=== PATIENT | female | born 1975 | race Caucasian/White ===

== ENCOUNTER 2022-10-19 20:49 | Inpatient (IN) ==
[2022-10-19 21:47] LABS: Basophils % 0.1 % (0.0-0.8); Hematocrit 37.3 VOL% (35.7-47.0); Hemoglobin 12.2 GM/DL (12.0-16.0); Immature Granulocytes % 0.5 %; Immature Granulocytes Absolute 0.08 #; Lymphocytes # 0.4 10*3/uL (1.4-4.0); Lymphocytes % 2.5 % (21.3-54.2); Mean Corpuscular HGB Conc 32.7 GM/DL (32-36); Mean Corpuscular Volume 96.1 FL (87-102); Monocytes # 1.2 10*3/uL (0.11-0.8); Monocytes % 7.5 % (1.7-12.7); Neutrophils % 89.4 % (38.7-73.9); Platelet Count 193 T/CUMM (130-400); Red Blood Count 3.88 MC/CUMM (3.8-5.5); Red Cell Distribution Width 12.4 % (9.3-17.3); White Blood Count 15.3 T/CUMM (4-12)
[2022-10-19] MEDS ORDERED: ONDANSETRON 4 MG/2 ML VIAL IV STA (22:00)
[2022-10-19] MEDS ORDERED: KETOROLAC 30 MG/1 ML VIAL IV STA (22:00)
[2022-10-19] MEDS ORDERED: SODIUM CHLORIDE 0.9% 1,000 ML IV STA ×2 (22:00→23:44)
[2022-10-19 22:14] LABS: Band Neutrophils 20 % (0-10); Lymphocytes 1 % (20-55); Total Cells Counted 100
[2022-10-19 22:15] LABS: Platelet Estimate Adequate
[2022-10-19] MEDS ORDERED: HYDROmorphone 1 MG/1 ML SYRINGE IV STA (22:18)
[2022-10-19 22:24] LABS: Albumin 3.6 G/DL (3.4-5.0); Bilirubin,Total 1.2 MG/DL (0.20-1.00); Osmolality,Calculated 284.1 MOS/KG (273-304); Potassium 3.7 MMOL/L (3.5-5.1); Total Protein 7.1 G/DL (6.4-8.2)
[2022-10-19 22:35] LABS: Bacteria,Urine Occasional /HPF (Few); Mucus,Urine Occasional /LPF (Occasional); RBC,Urine <1 /HPF (0-4); Squamous Epithelial Cell,Urine Occasional /HPF (0-10)
[2022-10-19 22:36] LABS: Bilirubin,Urine Negative (Negative); Blood, Urine Negative (Negative); Glucose,Urine (UA) Negative (Negative); Ketones,Urine 15 mg/dL (Negative); Nitrite,Urine Positive (Negative); Protein,Urine 30 mg/dL (Negative); Urine Appearance Clear (Clear); Urine Color Yellow (Yellow); Urine Specific Gravity 1.015 (1.001-1.035); Urine Urobilinogen 0.2 eU/dL (<2.0); Urine pH 6.5 (4.5-8.0)
[2022-10-19] MEDS ORDERED: CIPROFLOXACIN INJ 400 MG/200 ML PREMIX IV STA (22:50)
[2022-10-20] MEDS ORDERED: SODIUM CHLORIDE 0.9% 1,000 ML IV STA (00:51)
[2022-10-20] MEDS ORDERED: ACETAMINOPHEN 500 MG TABLET PO STA (01:24)
[2022-10-20] MEDS ORDERED: HYDROmorphone 1 MG/1 ML SYRINGE IV STA (01:24)
[2022-10-20] MEDS ORDERED: PIPERACILLIN/TAZOBACTAM 3,375 MG in SODIUM CHLORIDE 0.9% 100 ML IV STA (01:29)
[2022-10-20] MEDS ORDERED: NOREPINEPHRINE 8 MG in SODIUM CHLORIDE 0.9% 242 ML IV PRN (02:37)
[2022-10-20] MEDS ORDERED: HYDROmorphone 1 MG/1 ML SYRINGE IV PRN (02:37)
[2022-10-20] MEDS ORDERED: PROMETHAZINE 25 MG/1 ML VIAL IM PRN (02:37)
[2022-10-20] MEDS ORDERED: ACETAMINOPHEN 325 MG TABLET PO PRN (02:37)
[2022-10-20] MEDS ORDERED: ONDANSETRON 4 MG/2 ML VIAL IV PRN (02:37)
[2022-10-20] MEDS ORDERED: SODIUM CHLORIDE 0.9% 1,000 ML IV SCH (03:00)
[2022-10-20] MEDS: FAMOTIDINE 20 MG/2 ML VIAL IV SCH ×2 (03:14→15:02)
[2022-10-20] MEDS: LACTATED RINGERS 1,000 ML IV SCH ×4 (03:26→17:57)
[2022-10-20 05:47] LABS: Basophils % 0.2 % (0.0-0.8); Hematocrit 31.4 VOL% (35.7-47.0); Hemoglobin 10.1 GM/DL (12.0-16.0); Immature Granulocytes % 2.9 %; Immature Granulocytes Absolute 0.69 #; Lymphocytes # 0.7 10*3/uL (1.4-4.0); Mean Corpuscular HGB Conc 32.2 GM/DL (32-36); Mean Corpuscular Volume 97.2 FL (87-102); Monocytes # 1.1 10*3/uL (0.11-0.8); Monocytes % 4.4 % (1.7-12.7); Neutrophils % 89.5 % (38.7-73.9); Platelet Count 191 T/CUMM (130-400); Red Blood Count 3.23 MC/CUMM (3.8-5.5); Red Cell Distribution Width 12.7 % (9.3-17.3)
[2022-10-20 06:08] LABS: Calcium 7.4 MG/DL (8.5-10.1); Osmolality,Calculated 285.1 MOS/KG (273-304); Potassium 3.9 MMOL/L (3.5-5.1)
[2022-10-20 06:16] LABS: Band Neutrophils 4 % (0-10); Lymphocytes 5 % (20-55); Total Cells Counted 100
[2022-10-20 06:17] LABS: Platelet Estimate Adequate
[2022-10-20] MEDS ORDERED: SODIUM BICARBONATE 50 MEQ/50 ML VIAL IV ONE (08:33)
[2022-10-20] MEDS: PIPERACILLIN/TAZOBACTAM 3,375 MG in SODIUM CHLORIDE 0.9% 100 ML IV SCH ×2 (09:31→18:22)
[2022-10-20] MEDS: KETOROLAC 30 MG/1 ML VIAL IV PRN (09:59)
[2022-10-20] MEDS: LEVOFLOXACIN INJ 750 MG/150 ML PREMIX IV SCH (15:02)
[2022-10-20] MEDS: HYDROCORTISONE 100 MG VIAL IV SCH ×2 (15:03→22:15)
[2022-10-20 15:21] LABS: Calcium 7.2 MG/DL (8.5-10.1); Osmolality,Calculated 287.8 MOS/KG (273-304)
[2022-10-20] MEDS ORDERED: MAGNESIUM SULF RIDER 2 GM/50 ML PREMIX IV ONE ×2 (17:00→19:02)
[2022-10-20] MEDS ORDERED: LACTATED RINGERS 1,000 ML IV SCH (17:06)
[2022-10-20] MEDS ORDERED: CALCIUM GLUCONATE RIDER 1,000 MG/50 ML PREMIX IV ONE (17:06)
[2022-10-20] MEDS ORDERED: MAGNESIUM SULF RIDER 4 GM/100 ML PREMIX IV ONE ×2 (17:07→17:12)
[2022-10-20] MEDS: VANCOMYCIN INJ 1,000 MG in SODIUM CHLORIDE 0.9% 250 ML IV SCH (18:22)
[2022-10-20] MEDS ORDERED: ZOLMITRIPTAN 5 MG PO PRN (18:59)
[2022-10-20] MEDS ORDERED: MORPHINE 2 MG/1 ML SYRINGE IV ONE (23:04)
[2022-10-20] MEDS ORDERED: METHOCARBAMOL 1,000 MG/10 ML VIAL IM ONE (23:19)
[2022-10-20] MEDS ORDERED: ALBUTEROL/IPRATROPIUM 3 ML NEB RESP TX PRN (23:24)
[2022-10-20] MEDS ORDERED: METHOCARBAMOL INJ 500 MG in SODIUM CHLORIDE 0.9% 100 ML IV ONE (23:24)
[2022-10-20] MEDS ORDERED: SODIUM CHLORIDE 0.9% IV ONE (23:36)
[2022-10-20] MEDS ORDERED: METHOCARBAMOL IV ONE (23:36)
[2022-10-20] MEDS: ALBUTEROL 2.5 MG/3 ML NEB RESP TX PRN (23:37)
[2022-10-21] MEDS ORDERED: FUROSEMIDE 20 MG/2 ML VIAL IV ONE (01:10)
[2022-10-21] MEDS: PIPERACILLIN/TAZOBACTAM 3,375 MG in SODIUM CHLORIDE 0.9% 100 ML IV SCH ×3 (01:25→18:17)
[2022-10-21] MEDS: FAMOTIDINE 20 MG/2 ML VIAL IV SCH ×2 (03:15→14:10)
[2022-10-21] MEDS: VANCOMYCIN INJ 1,000 MG in SODIUM CHLORIDE 0.9% 250 ML IV SCH ×2 (04:35→17:05)
[2022-10-21 04:37] LABS: Arterial Base Excess iSTAT -4 MMOL/L (-2.5-2.5); Arterial Bicarbonate iSTAT 20.8 MMOL/L (20-26); Arterial O2 Saturation iSTAT 99 % (95-100); Arterial PCO2 iSTAT 37 MM HG (35-48); Arterial PO2 iSTAT 145 MM HG (80-95); Arterial Total CO2 iSTAT 22 MMO/L (23-27); Arterial pH iSTAT 7.357 (7.35-7.45)
[2022-10-21 04:56] LABS: Basophils # 0.1 10*3/uL (0.0-0.2); Basophils % 0.3 % (0.0-0.8); Eosinophils % 0.2 % (0.00-10.9); Hematocrit 31.6 VOL% (35.7-47.0); Hemoglobin 10.3 GM/DL (12.0-16.0); Immature Granulocytes % 8.2 %; Immature Granulocytes Absolute 1.68 #; Lymphocytes # 0.8 10*3/uL (1.4-4.0); Mean Corpuscular HGB Conc 32.6 GM/DL (32-36); Mean Corpuscular Volume 95.5 FL (87-102); Mean Platelet Volume 10.9 FL (9.6-12.0); Monocytes % 4.8 % (1.7-12.7); Neutrophils % 82.5 % (38.7-73.9); Platelet Count 150 T/CUMM (130-400); Red Blood Count 3.31 MC/CUMM (3.8-5.5); Red Cell Distribution Width 12.7 % (9.3-17.3); White Blood Count 20.4 T/CUMM (4-12)
[2022-10-21 05:20] LABS: Albumin 2.6 G/DL (3.4-5.0); Bilirubin,Total 1.1 MG/DL (0.20-1.00); Calcium 8.2 MG/DL (8.5-10.1); Osmolality,Calculated 279.3 MOS/KG (273-304); Potassium 3.7 MMOL/L (3.5-5.1); Total Protein 5.3 G/DL (6.4-8.2)
[2022-10-21 06:06] LABS: Anisocytosis 1+; Band Neutrophils 31 % (0-10); Burr Cells Few; Lymphocytes 5 % (20-55); Macrocytosis Slight; Platelet Estimate Normal; Total Cells Counted 100
[2022-10-21] MEDS: HYDROCORTISONE 100 MG VIAL IV SCH ×2 (06:14→18:17)
[2022-10-21] MEDS: KETOROLAC 30 MG/1 ML VIAL IV PRN (07:57)
[2022-10-21] MEDS: METHOCARBAMOL 500 MG TABLET PO PRN ×2 (12:21→17:01)
[2022-10-21] MEDS: ALBUTEROL 2.5 MG/3 ML NEB RESP TX SCH ×2 (13:10→19:42)
[2022-10-21] MEDS: LEVOFLOXACIN INJ 750 MG/150 ML PREMIX IV SCH (14:10)
[2022-10-21] MEDS: ZALEPLON 5 MG CAPSULE PO PRN (20:27)
[2022-10-22] MEDS: METHOCARBAMOL 500 MG TABLET PO PRN ×2 (00:18→23:13)
[2022-10-22] MEDS: ALBUTEROL 2.5 MG/3 ML NEB RESP TX SCH ×4 (00:30→19:47)
[2022-10-22] MEDS: PIPERACILLIN/TAZOBACTAM 3,375 MG in SODIUM CHLORIDE 0.9% 100 ML IV SCH ×3 (03:33→18:56)
[2022-10-22] MEDS: FAMOTIDINE 20 MG/2 ML VIAL IV SCH ×2 (03:33→14:43)
[2022-10-22 04:01] LABS: Basophils % 0.1 % (0.0-0.8); Hematocrit 25.8 VOL% (35.7-47.0); Hemoglobin 8.5 GM/DL (12.0-16.0); Immature Granulocytes % 0.8 %; Immature Granulocytes Absolute 0.15 #; Lymphocytes # 0.9 10*3/uL (1.4-4.0); Lymphocytes % 4.5 % (21.3-54.2); Mean Corpuscular HGB Conc 32.9 GM/DL (32-36); Mean Corpuscular Volume 94.5 FL (87-102); Mean Platelet Volume 11.4 FL (9.6-12.0); Neutrophils % 89.6 % (38.7-73.9); Platelet Count 136 T/CUMM (130-400); Red Blood Count 2.73 MC/CUMM (3.8-5.5); Red Cell Distribution Width 12.8 % (9.3-17.3); White Blood Count 19.5 T/CUMM (4-12)
[2022-10-22 04:28] LABS: Albumin 2.1 G/DL (3.4-5.0); Bilirubin,Total 0.5 MG/DL (0.20-1.00); Calcium 8.2 MG/DL (8.5-10.1); Osmolality,Calculated 287.8 MOS/KG (273-304); Potassium 3.3 MMOL/L (3.5-5.1); Total Protein 5.2 G/DL (6.4-8.2)
[2022-10-22 04:39] LABS: Band Neutrophils 4 % (0-10); Lymphocytes 6 % (20-55); Total Cells Counted 100
[2022-10-22 04:40] LABS: Macrocytosis Slight
[2022-10-22] MEDS: HYDROCORTISONE 100 MG VIAL IV SCH ×2 (05:47→20:15)
[2022-10-22] MEDS: VANCOMYCIN INJ 1,000 MG in SODIUM CHLORIDE 0.9% 250 ML IV SCH ×2 (05:48→16:46)
[2022-10-22] MEDS ORDERED: POTASSIUM CHLORIDE 20 MEQ TABLET PO ONE (05:51)
[2022-10-22] MEDS: ALPRAZolam 0.5 MG TABLET PO PRN ×2 (08:53→19:00)
[2022-10-22] MEDS ORDERED: FUROSEMIDE 20 MG/2 ML VIAL IV ONE (08:58)
[2022-10-22] MEDS: LEVOFLOXACIN INJ 750 MG/150 ML PREMIX IV SCH (14:43)
[2022-10-22] MEDS: POTASSIUM CHLORIDE 20 MEQ TABLET PO PRN ×4 (16:46→23:12)
[2022-10-22] MEDS: ALBUTEROL 2.5 MG/3 ML NEB RESP TX PRN (22:35)
[2022-10-22] MEDS: ZALEPLON 5 MG CAPSULE PO PRN (23:05)
[2022-10-22] MEDS: guaiFENesin 200 MG/10 ML UDCUP PO PRN (23:05)
[2022-10-23] MEDS: ALBUTEROL 2.5 MG/3 ML NEB RESP TX SCH ×4 (00:10→19:42)
[2022-10-23] MEDS: FAMOTIDINE 20 MG/2 ML VIAL IV SCH ×2 (02:16→15:05)
[2022-10-23] MEDS: PIPERACILLIN/TAZOBACTAM 3,375 MG in SODIUM CHLORIDE 0.9% 100 ML IV SCH ×3 (02:19→18:40)
[2022-10-23] MEDS: VANCOMYCIN INJ 1,250 MG in SODIUM CHLORIDE 0.9% 250 ML IV SCH ×2 (03:13→17:28)
[2022-10-23] MEDS: ALPRAZolam 0.5 MG TABLET PO PRN (03:25)
[2022-10-23 04:44] LABS: Basophils % 0.1 % (0.0-0.8); Hematocrit 26.5 VOL% (35.7-47.0); Hemoglobin 8.8 GM/DL (12.0-16.0); Immature Granulocytes % 0.4 %; Immature Granulocytes Absolute 0.06 #; Lymphocytes # 0.9 10*3/uL (1.4-4.0); Lymphocytes % 6.3 % (21.3-54.2); Mean Corpuscular HGB Conc 33.2 GM/DL (32-36); Mean Platelet Volume 11.9 FL (9.6-12.0); Monocytes # 0.8 10*3/uL (0.11-0.8); Monocytes % 5.5 % (1.7-12.7); Neutrophils % 87.7 % (38.7-73.9); Platelet Count 143 T/CUMM (130-400); Red Blood Count 2.79 MC/CUMM (3.8-5.5); Red Cell Distribution Width 12.7 % (9.3-17.3); White Blood Count 14.8 T/CUMM (4-12)
[2022-10-23 05:24] LABS: Calcium 8.2 MG/DL (8.5-10.1); Osmolality,Calculated 287.8 MOS/KG (273-304); Potassium 3.8 MMOL/L (3.5-5.1)
[2022-10-23 07:32] LABS: Band Neutrophils 1 % (0-10); Lymphocytes 11 % (20-55); Microcytosis Slight; Total Cells Counted 100
[2022-10-23 07:33] LABS: Ovalocytes Slight; Platelet Estimate Adequate
[2022-10-23] MEDS: POTASSIUM CHLORIDE 20 MEQ TABLET PO PRN ×6 (07:51→22:08)
[2022-10-23] MEDS: HYDROCORTISONE 100 MG VIAL IV SCH ×2 (08:18→15:06)
[2022-10-23] MEDS ORDERED: MIDAZOLAM 2 MG/2 ML VIAL ONE (09:55)
[2022-10-23] MEDS ORDERED: propofoL 200 MG/20 ML VIAL IV ONE (09:55)
[2022-10-23] MEDS ORDERED: fentaNYL 100 MCG/2 ML VIAL ONE (09:55)
[2022-10-23] MEDS ORDERED: CLORAZEPATE 7.5 MG TABLET PO PRN (10:59)
[2022-10-23] MEDS ORDERED: FUROSEMIDE 40 MG/4 ML VIAL IV ONE (11:18)
[2022-10-23] MEDS: BENZONATATE 100 MG CAPSULE PO SCH ×3 (11:37→20:05)
[2022-10-23] MEDS: ENOXAPARIN 40 MG/0.4 ML SYRINGE SUBCUT SCH (11:38)
[2022-10-23] MEDS: BUDESONIDE 0.5 MG/2 ML NEB RESP TX SCH ×2 (11:45→19:42)
[2022-10-23] MEDS: DIAZEPAM 5 MG TABLET PO PRN (11:45)
[2022-10-23] MEDS: LEVOFLOXACIN INJ 750 MG/150 ML PREMIX IV SCH (15:06)
[2022-10-23] MEDS ORDERED: methylPREDNISolone SOD SUC 125 MG/2 ML VIAL IV ONE (19:00)
[2022-10-23] MEDS: methylPREDNISolone SOD SUC 40 MG/1 ML VIAL IV SCH (19:37)
[2022-10-23] MEDS: METHOCARBAMOL 500 MG TABLET PO PRN (22:38)
[2022-10-23] MEDS: guaiFENesin 200 MG/10 ML UDCUP PO PRN (22:45)
[2022-10-24] MEDS: ALBUTEROL 2.5 MG/3 ML NEB RESP TX SCH ×4 (02:00→19:19)
[2022-10-24] MEDS: FAMOTIDINE 20 MG/2 ML VIAL IV SCH ×2 (02:41→15:05)
[2022-10-24] MEDS: methylPREDNISolone SOD SUC 40 MG/1 ML VIAL IV SCH ×3 (02:44→19:30)
[2022-10-24] MEDS: PIPERACILLIN/TAZOBACTAM 3,375 MG in SODIUM CHLORIDE 0.9% 100 ML IV SCH ×3 (02:45→18:20)
[2022-10-24] MEDS: DIAZEPAM 5 MG TABLET PO PRN (02:48)
[2022-10-24] MEDS: guaiFENesin 200 MG/10 ML UDCUP PO PRN ×2 (02:48→18:23)
[2022-10-24 04:40] LABS: Basophils % 0.1 % (0.0-0.8); Hematocrit 27.9 VOL% (35.7-47.0); Hemoglobin 9.5 GM/DL (12.0-16.0); Immature Granulocytes % 1.4 %; Immature Granulocytes Absolute 0.12 #; Lymphocytes # 0.8 10*3/uL (1.4-4.0); Lymphocytes % 9.5 % (21.3-54.2); Mean Corpuscular HGB Conc 34.1 GM/DL (32-36); Mean Corpuscular Volume 92.4 FL (87-102); Mean Platelet Volume 11.2 FL (9.6-12.0); Monocytes # 0.1 10*3/uL (0.11-0.8); Monocytes % 1.4 % (1.7-12.7); Neutrophils % 87.6 % (38.7-73.9); Platelet Count 167 T/CUMM (130-400); Red Blood Count 3.02 MC/CUMM (3.8-5.5); Red Cell Distribution Width 12.5 % (9.3-17.3); White Blood Count 8.6 T/CUMM (4-12)
[2022-10-24 05:07] LABS: Calcium 8.3 MG/DL (8.5-10.1); Potassium 3.8 MMOL/L (3.5-5.1)
[2022-10-24] MEDS: VANCOMYCIN INJ 1,250 MG in SODIUM CHLORIDE 0.9% 250 ML IV SCH (07:07)
[2022-10-24] MEDS: BUDESONIDE 0.5 MG/2 ML NEB RESP TX SCH ×2 (08:04→19:27)
[2022-10-24] MEDS: BENZONATATE 100 MG CAPSULE PO SCH ×3 (09:04→21:29)
[2022-10-24] MEDS: ENOXAPARIN 40 MG/0.4 ML SYRINGE SUBCUT SCH (10:12)
[2022-10-24] MEDS ORDERED: FUROSEMIDE 40 MG/4 ML VIAL IV ONE (12:18)
[2022-10-24] MEDS ORDERED: POTASSIUM CHLORIDE 20 MEQ TABLET PO ONE (12:18)
[2022-10-24] MEDS: guaiFENesin/CODEINE 5 ML LIQUID PO PRN (13:35)
[2022-10-24] MEDS: LEVOFLOXACIN INJ 750 MG/150 ML PREMIX IV SCH (15:04)
[2022-10-24] MEDS: KETOROLAC 30 MG/1 ML VIAL IV PRN (19:30)
[2022-10-24] MEDS: METHOCARBAMOL 500 MG TABLET PO PRN (21:29)
[2022-10-25] MEDS: ALBUTEROL 2.5 MG/3 ML NEB RESP TX SCH ×4 (00:05→19:51)
[2022-10-25] MEDS: PIPERACILLIN/TAZOBACTAM 3,375 MG in SODIUM CHLORIDE 0.9% 100 ML IV SCH ×2 (02:28→09:03)
[2022-10-25] MEDS: FAMOTIDINE 20 MG/2 ML VIAL IV SCH ×2 (02:29→15:07)
[2022-10-25] MEDS: methylPREDNISolone SOD SUC 40 MG/1 ML VIAL IV SCH ×2 (02:29→15:05)
[2022-10-25] MEDS: guaiFENesin/CODEINE 5 ML LIQUID PO PRN (04:03)
[2022-10-25 05:11] LABS: Basophils % 0.2 % (0.0-0.8); Hematocrit 30.1 VOL% (35.7-47.0); Hemoglobin 10.2 GM/DL (12.0-16.0); Immature Granulocytes % 2.9 %; Lymphocytes # 1.1 10*3/uL (1.4-4.0); Lymphocytes % 7.6 % (21.3-54.2); Mean Corpuscular HGB Conc 33.9 GM/DL (32-36); Mean Corpuscular Volume 91.2 FL (87-102); Mean Platelet Volume 10.9 FL (9.6-12.0); Monocytes # 0.6 10*3/uL (0.11-0.8); Monocytes % 4.5 % (1.7-12.7); Neutrophils % 84.8 % (38.7-73.9); Platelet Count 218 T/CUMM (130-400); Red Cell Distribution Width 12.4 % (9.3-17.3); White Blood Count 13.8 T/CUMM (4-12)
[2022-10-25 05:35] LABS: Albumin 2.2 G/DL (3.4-5.0); Bilirubin,Total 0.6 MG/DL (0.20-1.00); Calcium 8.3 MG/DL (8.5-10.1); Ferritin 232.2 ng/mL (8-252); Osmolality,Calculated 287.3 MOS/KG (273-304); Potassium 3.2 MMOL/L (3.5-5.1); Total Protein 5.8 G/DL (6.4-8.2)
[2022-10-25 05:39] LABS: Folate 10.49 NG/ML (5.38-24.0)
[2022-10-25 05:42] LABS: Thyroid Stimulating Hormone 1.78 uIU/ml (0.358-3.74)
[2022-10-25] MEDS: BUDESONIDE 0.5 MG/2 ML NEB RESP TX SCH ×2 (07:20→19:51)
[2022-10-25] MEDS: guaiFENesin 200 MG/10 ML UDCUP PO PRN ×3 (08:11→17:58)
[2022-10-25 08:23] LABS: PT Patient Result 11.2 SECS (10.1-12.1)
[2022-10-25] MEDS: POTASSIUM CHLORIDE 20 MEQ TABLET PO PRN ×3 (09:27→17:58)
[2022-10-25] MEDS: BENZONATATE 100 MG CAPSULE PO SCH ×3 (09:27→20:59)
[2022-10-25] MEDS: ENOXAPARIN 40 MG/0.4 ML SYRINGE SUBCUT SCH (10:13)
[2022-10-25] MEDS: CHOLECALCIFEROL 5,000 UNIT TABLET PO SCH (12:02)
[2022-10-25] MEDS: BACILLUS COAGULANS CAPLET PO SCH (13:01)
[2022-10-25] MEDS: DIAZEPAM 5 MG TABLET PO PRN (13:46)
[2022-10-25] MEDS: LEVOFLOXACIN INJ 750 MG/150 ML PREMIX IV SCH (13:48)
[2022-10-25 14:44] VITALS: BP 126/78
[2022-10-25 16:20] LABS: Glucose,Pleural Fluid 126 MG/DL; LDH,Body Fluid 142 U/L
[2022-10-25 16:41] LABS: Lymphocytes,Pleural Fluid 16 %; Monocytes,Pleural Fluid 2 %; Neutrophils,Pleural Fluid 81 %; RBC,Pleural Fluid 166 T/CUMM
[2022-10-25] MEDS: METHOCARBAMOL 500 MG TABLET PO PRN (19:53)
[2022-10-25] MEDS: ESCITALOPRAM 10 MG TABLET PO SCH (20:59)
[2022-10-26] MEDS: ALBUTEROL 2.5 MG/3 ML NEB RESP TX SCH ×4 (00:06→19:20)
[2022-10-26] MEDS: FAMOTIDINE 20 MG/2 ML VIAL IV SCH ×2 (03:09→15:47)
[2022-10-26] MEDS: methylPREDNISolone SOD SUC 40 MG/1 ML VIAL IV SCH ×2 (03:10→15:47)
[2022-10-26] MEDS: guaiFENesin 200 MG/10 ML UDCUP PO PRN (05:22)
[2022-10-26 05:28] LABS: Basophils % 0.2 % (0.0-0.8); Hematocrit 30.8 VOL% (35.7-47.0); Hemoglobin 10.5 GM/DL (12.0-16.0); Immature Granulocytes % 5.4 %; Immature Granulocytes Absolute 0.76 #; Lymphocytes # 1.1 10*3/uL (1.4-4.0); Mean Corpuscular HGB Conc 34.1 GM/DL (32-36); Mean Corpuscular Volume 90.9 FL (87-102); Mean Platelet Volume 10.5 FL (9.6-12.0); Monocytes # 1.4 10*3/uL (0.11-0.8); Monocytes % 9.9 % (1.7-12.7); Neutrophils % 76.5 % (38.7-73.9); Platelet Count 236 T/CUMM (130-400); Red Blood Count 3.39 MC/CUMM (3.8-5.5); Red Cell Distribution Width 12.4 % (9.3-17.3); White Blood Count 14.2 T/CUMM (4-12)
[2022-10-26 05:55] LABS: Albumin 2.4 G/DL (3.4-5.0); Bilirubin,Total 0.5 MG/DL (0.20-1.00); Calcium 8.4 MG/DL (8.5-10.1); Osmolality,Calculated 289.1 MOS/KG (273-304); Potassium 3.8 MMOL/L (3.5-5.1); Total Protein 5.6 G/DL (6.4-8.2)
[2022-10-26 07:13] LABS: Lymphocytes 4 % (20-55); Nucleated Red Blood Cells 1 /100 WBC (0-5); Platelet Estimate Adequate; Total Cells Counted 100
[2022-10-26] MEDS: BUDESONIDE 0.5 MG/2 ML NEB RESP TX SCH ×2 (08:14→19:20)
[2022-10-26] MEDS: BENZONATATE 100 MG CAPSULE PO SCH ×3 (08:37→20:01)
[2022-10-26] MEDS: CHOLECALCIFEROL 5,000 UNIT TABLET PO SCH (08:37)
[2022-10-26] MEDS: BACILLUS COAGULANS CAPLET PO SCH (08:38)
[2022-10-26] MEDS: ENOXAPARIN 40 MG/0.4 ML SYRINGE SUBCUT SCH (12:19)
[2022-10-26 13:47] LABS: Specimen Source BRONCH WASH
[2022-10-26] MEDS: LEVOFLOXACIN INJ 750 MG/150 ML PREMIX IV SCH (15:46)
[2022-10-26] MEDS: ESCITALOPRAM 10 MG TABLET PO SCH (20:01)
[2022-10-26 21:21] LABS: M. Tuberculosis PCR Result Negative (Negative); M. Tuberculosis PCR Source BRONCH WASH
[2022-10-26] MEDS: METHOCARBAMOL 500 MG TABLET PO PRN (21:44)
[2022-10-27] MEDS: ALBUTEROL 2.5 MG/3 ML NEB RESP TX SCH ×3 (00:51→13:57)
[2022-10-27] MEDS: FAMOTIDINE 20 MG/2 ML VIAL IV SCH (03:22)
[2022-10-27] MEDS: methylPREDNISolone SOD SUC 40 MG/1 ML VIAL IV SCH (03:26)
[2022-10-27 05:41] LABS: Basophils # 0.1 10*3/uL (0.0-0.2); Basophils % 0.5 % (0.0-0.8); Hematocrit 29.9 VOL% (35.7-47.0); Immature Granulocytes % 7.4 %; Immature Granulocytes Absolute 0.96 #; Lymphocytes # 1.2 10*3/uL (1.4-4.0); Lymphocytes % 9.2 % (21.3-54.2); Mean Corpuscular HGB Conc 33.4 GM/DL (32-36); Mean Corpuscular Volume 94.3 FL (87-102); Mean Platelet Volume 10.6 FL (9.6-12.0); Monocytes % 7.7 % (1.7-12.7); Neutrophils % 75.2 % (38.7-73.9); Platelet Count 216 T/CUMM (130-400); Red Blood Count 3.17 MC/CUMM (3.8-5.5); Red Cell Distribution Width 12.5 % (9.3-17.3); White Blood Count 12.9 T/CUMM (4-12)
[2022-10-27 06:03] LABS: Calcium 8.2 MG/DL (8.5-10.1); Potassium 3.8 MMOL/L (3.5-5.1)
[2022-10-27 06:51] LABS: Sedimentation Rate-Westergren 52 MM/HR (0-20)
[2022-10-27] MEDS ORDERED: FUROSEMIDE 40 MG/4 ML VIAL IV ONE (07:00)
[2022-10-27] MEDS ORDERED: POTASSIUM CHLORIDE 20 MEQ TABLET PO ONE (07:00)
[2022-10-27] MEDS: BUDESONIDE 0.5 MG/2 ML NEB RESP TX SCH (07:58)
[2022-10-27] MEDS: BACILLUS COAGULANS CAPLET PO SCH (08:37)
[2022-10-27] MEDS: BENZONATATE 100 MG CAPSULE PO SCH (08:37)
[2022-10-27] MEDS: CHOLECALCIFEROL 5,000 UNIT TABLET PO SCH (08:37)
[2022-10-27 10:05] LABS: Band Neutrophils 2 % (0-10); Lymphocytes 7 % (20-55); Total Cells Counted 100
[2022-10-27 10:06] LABS: Microcytosis 1+; Ovalocytes Slight; Platelet Estimate Normal
[2022-10-27] MEDS: ENOXAPARIN 40 MG/0.4 ML SYRINGE SUBCUT SCH (11:02)
== END 2022-10-27 14:20 | disposition home or self-care (01) | DRG 871 ==
LOC: N.ED 20:49 → N.EDINP 10-20 02:37 → SUATTDRO 10-20 02:37 → N.EDINP 10-20 05:00 → N.CC 10-20 05:16
PROVIDERS: ADMIT Internal Medicine; ATTEND Family Medicine